=== PATIENT | female | born 1995 | race Caucasian/White ===

== ENCOUNTER → 2020-07-25 | Outpatient (CLI) | payer OTHER, SELFPAY ==
--- NOTE | 2020-07-25 14:17 | REP ---
INDICATION: IUD LOCATION. COMPARISON: None. TECHNIQUE: Multiple sonographic images of the pelvis with transabdominal, endovaginal and Doppler ultrasound. FINDINGS: The uterus is anteverted and normal size measuring 7.4 x 3.3 x 3.6 cm. The endometrium is not thickened measuring 2 mm. There is an IUD within the fundal and body portion of the endometrial canal in satisfactory position. Right ovary: The right ovary has a bilobed appearance and is enlarged overall measuring 5.1 x 2.1 x 4.0 cm. There is a solid nodular structure measuring 1.4 cm giving in the ovary a bilobed appearance. This may represent a solid ovarian nodule, hemorrhagic cyst or involuting cyst. I would recommend follow-up pelvic ultrasound after 2 menstrual cycles for further evaluation of this finding. Left ovary: The left ovary is normal size measuring 2.5 x 1.8 x 2.3 cm. There is no dominant mass or cyst. There is vascular flow in both ovaries with the Doppler resistive index in the parenchymal arteries of the right ovary measuring 0.52 and left ovary 0.52. There is a trace of free fluid in the left adnexa. IMPRESSION: There is an IUD in satisfactory position within the fundal and body portions of the endometrial canal. There is a solid 1.4 cm nodule like structure giving the right ovary a bilobed appearance. This is nonspecific and could represent hemorrhagic follicle, involuting follicle or solid mass. I would recommend follow-up of this finding after 2 menstrual cycles. <Electronically signed by David Ortiz > 07/25/20 3003
== END ==
LOC: M RAD 12:22
PROVIDERS: ATTEND Physician Assistant Medical
DX: R10.2 Pelvic and perineal pain (principal)

== ENCOUNTER → 2021-12-13 | Outpatient (CLI) | payer OTHER ==
[2021-12-13 12:34] LABS: BASO % 0.3 % (0.0-1.0); EOS # 0.1 10^3/uL (0.0-0.5); EOS % 1.2 % (0.0-3.0); HEMOGLOBIN 13.3 g/dl (12.0-15.5); LYMPH % 34.8 % (24.0-44.0); MEAN CORPUSCULAR HEMOGLOBIN 29.6 pg (27.0-33.0); MEAN CORPUSCULAR HGB CONC 34.1 g/dl (32.0-36.5); MEAN CORPUSCULAR VOLUME 86.9 fl (80.0-96.0); MONO # 0.4 10^3/uL (0.0-0.8); MONO % 6.4 % (2.0-8.0); NEUTROPHILS # 3.3 10^3/uL (1.5-8.5); NEUTROPHILS % 57.1 % (36.0-66.0); PLATELET COUNT, AUTOMATED 199 10^3/uL (150-450); RED BLOOD COUNT 4.49 10^6/uL (4.00-5.40); WHITE BLOOD COUNT 5.8 10^3/uL (4.0-10.0)
[2021-12-13 13:15] LABS: ALBUMIN 3.9 GM/DL (3.2-5.2); ALT/SGPT 37 U/L (12-78); BILIRUBIN,TOTAL 0.4 MG/DL (0.2-1.0); BLOOD UREA NITROGEN 15 MG/DL (7-18); CALCIUM LEVEL 9.3 MG/DL (8.5-10.1); CARBON DIOXIDE LEVEL 25 MEQ/L (21-32); CHLORIDE LEVEL 105 MEQ/L (98-107); CREATININE FOR GFR 0.67 MG/DL (0.55-1.30); GLOMERULAR FILTRATION RATE > 60.0 (>60); GLUCOSE, FASTING 83 MG/DL (70-100); HCG, SERUM QUANTITATIVE < 1.0 MIU/ML; POTASSIUM SERUM 4.4 MEQ/L (3.5-5.1); SODIUM LEVEL 135 MEQ/L (136-145); TOTAL PROTEIN 7.7 GM/DL (6.4-8.2)
== END ==
LOC: M LAB 11:25
PROVIDERS: ATTEND Obstetrics & Gynecology Reproductive Endocrinology
DX: Z01.812 Encounter for preprocedural laboratory examination (principal)